=== PATIENT | male | born 1980 | race Caucasian/White ===

== ENCOUNTER 2018-08-28 22:08 | Emergency (ER) | payer SELFPAY, OTHER ==
[2018-08-28 23:54] LABS: URINE PH (Dip) POC 5.5 (5.0-8.5)
[2018-08-28 23:54] LABS: URINE BLOOD (Dip) POC Negative (NEGATIVE); URINE GLUCOSE (Dip) POC Negative (NEGATIVE); URINE KETONES (Dip) POC Trace (NEGATIVE); URINE LEUKOCYTE EST (Dip) POC 1+ (NEGATIVE); URINE NITRITE (Dip) POC Negative (NEGATIVE); URINE TOTAL PROTEIN POC Negative (NEGATIVE)
[2018-08-28] MEDS ORDERED: LIDOCAINE 1% (MPF) 5 ML VIAL (23:54)
[2018-08-28] MEDS: CEFTRIAXONE 250 MG INJ IM (23:56)
[2018-08-28] MEDS: AZITHROMYCIN 250 MG TAB PO (23:56)
== END 2018-08-29 00:38 | disposition home or self-care (01) ==
LOC: FTE 22:08
DX: N34.2 Other urethritis (principal)
CPT/HCPCS: 81003; 87591; 96372; 99284-25